=== PATIENT | male | born 1950 | race Caucasian/White ===

== ENCOUNTER → 2018-05-30 05:17 | Day surgery (SDC) | payer MEDICARE, BC ==
[~2018-05-30] VITALS: Ht 177.8 cm; Wt 80.7 kg
--- NOTE | ~2018-05-30 | OP ---
PATIENT NAME: MOY LEY MEDICAL RECORD: [id number] :54 LOCATION:[facility] ADMISSION DATE: SURGEON: TAMIKO DELEON MD DATE OF OPERATION: 05/30/2018 DATE OF SERVICE: 05/30/2018 PREOPERATIVE DIAGNOSES: Lumbar spinal stenosis with foraminal stenosis at L4-L5 on the right. POSTOPERATIVE DIAGNOSES: Lumbar spinal stenosis with foraminal stenosis at L5 on the right. PROCEDURES: Lumbar laminotomy, medial facetectomy and foraminotomy at L4-L5 on the right with METRx retractor. SURGEON: Tamiko Deleon MD DESCRIPTION AND TECHNIQUE: After induction of general endotracheal anesthesia, the patient was rolled prone on the Michael frame. Lumbar spine was prepped and draped in the usual sterile fashion. Fluoroscopic x-ray and spinal needle localized the L4-L5 interspace on the right side. A stab incision was created with a #11 blade. A dilator was used to advance a METRx retractor at L4-L5 on the right. The level was confirmed with fluoroscopic x-ray. A microscope and Mid[place] Carlos drill were used to perform laminotomy, medial facetectomy and foraminotomy at L4-L5 on the right. Hypertrophied ligamentum flavum was removed with Cloward rongeurs and further foraminotomy was carried out with Cloward rongeurs and the foramen at L4-L5 on the right. Following this, the L4 and L5 nerve roots were decompressed well. Meticulous hemostasis was maintained throughout the wound. Wound was irrigated with copious amounts of Ancef irrigant solution. The fascia was closed with 2-0 Vicryl suture, the subdermal layer was closed with 3-0 Vicryl suture. The skin was closed with kendal. A sterile dressing was applied to the wound. The patient was awakened in good condition, taken to recovery. All counts were reported as correct. Estimated blood loss was minimal. TRANSINT:[id number] Voice Confirmation ID: [id number] DOCUMENT ID: [id number] TAMIKO DELEON MD at 1824 CC: [id number] DICTATION DATE: 06/06/18 1312 TOE CLOSING MACHINE TENDER: 06/06/18 1412 [facility] 05/30/18 [place] [address]
[~2018-05-30 05:17] MED LIST: BAYER CHEWABLE81 MG PO; GLUCOPHAGE1000 MG PO; METOPROLOL TART25 MG PO; ZOCOR20 MG PO
[2018-05-30 06:13] LABS: CALC OSMOLALITY 286 mosm/kg (275-300); CALCIUM 9.1 mg/dL (8.5-10.1); CARBON DIOXIDE 28.8 mmol/L (21.0-32.0); CHLORIDE - SERUM 103 mmol/L (98-107); GLUCOSE 189 mg/dL (74-106); POTASSIUM - SERUM 4.4 mmol/L (3.5-5.1); SODIUM 139 mmol/L (136-145); UREA NITROGEN 23 mg/dL (7-18); eGFR NON AFRICAN AMERICAN 79 mL/min (90-120)
[2018-05-30 06:16] LABS: HEMATOCRIT 39.1 % (42.0-54.0); HEMOGLOBIN 13.5 g/dL (13.5-17.5); MCV 85.6 fL (80.0-100.0); RBC 4.57 10x6/uL (4.20-6.10); WBC 7.8 10x3/uL (4.8-10.8)
[2018-05-30 06:17] LABS: MCH 29.5 pg (26.0-34.0); MCHC 34.5 g/dL (31.0-37.0); MEAN PLATELET VOLUME 9.7 fL (7.4-10.4); RDW 13.5 % (11.5-14.5)
[2018-05-30 07:02] VITALS: BP 123/65; Ht 177.8 cm; Wt 80.7 kg
== END | disposition home or self-care (01) ==
LOC: D.OPS 05:17 → D.PAN 07:30 → D.OPS 07:30
PROVIDERS: Anesthesiology
DX: M48.061 Spinal stenosis, lumbar region without neurogenic claudication (principal); Z01.812 Encounter for preprocedural laboratory examination